=== PATIENT | male | born 1950 | race Caucasian/White ===

== ENCOUNTER 2024-02-04 08:58 | Outpatient (AMB) | payer OTHER, SELFPAY ==
--- NOTE | 2024-02-04 09:01 | MHC.OFFVIS ---
Intake Visit Reasons: Elevated PSA Intake Note: NEW Patient presents today to established treatment for ELEVATED PSA: Meds- None Allergies to Antibiotic- No Known Allergies Blood Thinner- None Post Void Residual: 46 mL Produce Service Team Member Required: No Accompanied by: Self / Same As Patient Allergies lisinopril Allergy (Unknown, Verified 02/04/24 09:12) Unknown pravastatin Allergy (Unknown, Verified 02/04/24 09:12) Unknown simvastatin Allergy (Unknown, Verified 02/04/24 09:12) Unknown HPI Comments Details: Bradley is a pleasant male. He is a patient through the Dr. Gonzalez [place]. He is seen for the following urologic conditions - elevated PSA - lower urinary tract symptoms Lower urinary tract symptoms Progressive Weakness of stream with incomplete emptying Slowly rising PSA PSA - 06/04 5.1 F 26%, 10/08 7.6 MIKALA 2+ Plan trial of tamsulosin with finasteride 2 month follow-up tele [facility] Medical History (Updated 02/04/24 @ 09:38 by Thompson Peacock MD) Erectile dysfunction due to arterial insufficiency Poor urinary stream BPH with obstruction/lower urinary tract symptoms Elevated PSA Review of Systems Const Denies chills and Denies fever(s) Card Reports no additional complaints and Denies syncope Resp Denies cough GI Denies abdominal pain and Denies heartburn Reports as per HPI and Denies change in libido Neuro Denies syncope Psych Denies change in libido Endo Denies change in libido Physical Exam Const General: cooperative, healthy appearing, comfortable and no acute distress Orientation/consciousness: patient oriented x3 HEENT Face and sinus: Yes normal facial exam Mouth: moist mucous membranes Neck Neck: Yes normal visual inspection, Yes full ROM and Yes trachea midline Chest Chest palpation & inspection: normal inspection of the chest Resp Effort & Inspection: normal respiratory effort, able to speak in complete sentences and no respiratory distress GI Inspection: Yes normal to inspection Back/Spine/Pelvis Cervical Spine: normal cervical lordosis Thoracic/Lumbar Spine: thoracic and lumbar spine normal to inspection Skin General skin exam: no rashes or lesions noted Neuro General: patient oriented x3, gait normal, tone normal and moves all extremities Extrem General: Yes normal to inspection and Yes capillary refill normal Office Procedures Post Void Residual Post Residual Void Post Void Residual (PVR): 46 [id number]-[id number] Void Residual by ultrasound Results AMB Urinalysis, Automated UA Leukoctes 0 Kayley/uL Last Edit by LM Lance on 02/04/24 09:26 UA Nitrite Negative Last Edit by Julio Navarro Sujatha on 02/04/24 09:26 UA Urobilinogen 0.2 mg/dL Last Edit by Julio Navarro A on 02/04/24 09:26 UA Protein 0 mg/dL Last Edit by Julio Navarro A on 02/04/24 09:26 UA pH 6.0 Last Edit by Julio Navarro A on 02/04/24 09:26 UA Blood 0 Rajan/uL Last Edit by Julio Navarro A on 02/04/24 09:26 UA Specific [place] 1.020 Last Edit by Julio Navarro Sujatha on 02/04/24 09:26 UA Ketone Negative Last Edit by Julio Navarro [facility] on 02/04/24 09:26 UA Bilirubin 0 mg/dL Last Edit by Julio Navarro Sujatha on 02/04/24 09:26 UA Glucose 0 mg/dL Last Edit by Julio Navarro [facility] on 02/04/24 09:26 Results Reviewed Results Reviewed: Laboratory Last Values Urine pH (Auto) 6.0 02/04/24 09:12 Specific [place] (Auto) 1.020 02/04/24 09:12 Urine Protein (Auto) 0 mg/dL 02/04/24 09:12 Glucose (UA)(Auto) 0 mg/dL 02/04/24 09:12 Urine Ketones (Auto) Negative 02/04/24 09:12 Urine Blood (Auto) 0 Arjan/uL 02/04/24 09:12 Urine Nitrite (Auto) Negative 02/04/24 09:12 Urine Bilirubin (Auto) 0 mg/dL 02/04/24 09:12 Urine Urobilinogen (Auto) 0.2 mg/dL 02/04/24 09:12 Leukocyte Esterase (Auto) 0 Kayley/uL 02/04/24 09:12 Assessment & Plan Assessment & Plan (1) Poor urinary stream: Code(s): R39.12 - Poor urinary stream Category: Medical (2) BPH with obstruction/lower urinary tract symptoms: Code(s): N40.1 - Benign prostatic hyperplasia with lower urinary tract symptoms; N13.8 - Other obstructive and reflux uropathy Category: Medical (3) Elevated PSA: Code(s): R97.20 - Elevated prostate specific antigen [PSA] Category: Medical Plan Two month follow-up tele Orders: Orders AMB Urinalysis Automated Today Z13.9 - Encounter for screening, unspecified AMB Post Void Residual by ultrasound Today N39.8 - Other specified disorders of urinary system Medications: New tamsulosin 0.4 mg PO BEDTIME 30 days 30 caps 1RF N13.8 - Other obstructive and reflux uropathy, N40.1 - Benign prostatic hyperplasia with lower urinary tract symptoms, R35.1 - Nocturia finasteride 5 mg PO DAILY 90 days 90 tabs 1RF N13.8 - Other obstructive and reflux uropathy, N40.1 - Benign prostatic hyperplasia with lower urinary tract symptoms, R33.9 - Retention of urine, unspecified Patient Instructions: Imaging studies, laboratory and physical exam results were discussed and reviewed in detail. No major barriers to patient understanding were identified. An opportunity to ask questions regarding the treatment plan was provided. All questions were answered. The patient expressed understanding and agreement with the above treatment plan. The patient is aware they should contact our office by phone for worsening of their current condition or the appearance of new urologic symptoms. Compliance is encouraged with any medications and followup testing that is ordered. It is a privilege to participate in the urologic care of your patient. If you have any questions or concerns regarding treatment for the above conditions, or other urologic issues, please do not hesitate to contact me. The office telephone contact is [phone]. This note is constructed using voice recognition software. While every effort has been made to ensure accuracy epic stork specialists errors may have been included. Yours sincerely, Dr Thompson Peacock MD, [facility] - Urology Providers of Expert, Compassionate Care for the Genitourinary System Coding Level of Care Code New Pt Level 4 (84186) Diagnoses Poor urinary stream R39.12 BPH with obstruction/lower urinary tract symptoms N40.1; N13.8 Elevated PSA R97.20 CPT Codes Post Residual Void - PVR CPT Code: 35360-Ogdw Void Residual by ultrasound ([id number])
== END 2024-02-04 09:44 | disposition home or self-care (01) ==
PROVIDERS: Visit Provider Urology
DX: N40.1 Benign prostatic hyperplasia with lower urinary tract symptoms (principal); R39.12 Poor urinary stream; N13.8 Other obstructive and reflux uropathy; R97.20 Elevated prostate specific antigen [PSA]
CPT/HCPCS: 99204

== ENCOUNTER → 2024-02-04 08:58 | Outpatient (BNVA) | payer OTHER, SELFPAY | PROVIDERS: Visit Provider Urology | DX: N40.1 Benign prostatic hyperplasia with lower urinary tract symptoms (principal); N13.8 Other obstructive and reflux uropathy; R39.12 Poor urinary stream; R97.20 Elevated prostate specific antigen [PSA] | CPT/HCPCS: 51798; 81003; 99202 ==

== ENCOUNTER 2024-04-06 08:18 | Outpatient (AMB) | payer OTHER, SELFPAY ==
--- NOTE | 2024-04-06 08:31 | MHC.OFFVIS ---
Intake Visit Reasons: 2M Med Review(Finasteride/Tamsulosin) Intake Note: Patient presents today for 2m med review Meds- tamsulosin,finasteride Allergies to Antibiotic- No Known Allergies Blood Thinner- None Post Void Residual: 46 mL today's PVR:0ML'S Instrument And Control Service Person Required: No Accompanied by: Self / Same As Patient Allergies lisinopril Allergy (Unknown, Verified 04/06/24 08:32) Unknown pravastatin Allergy (Unknown, Verified 04/06/24 08:32) Unknown simvastatin Allergy (Unknown, Verified 04/06/24 08:32) Unknown HPI Comments Details: Bradley is a pleasant male. He is a patient through the Dr. Lisa RAMOS. He is seen for the following urologic conditions - elevated PSA - lower urinary tract symptoms Tamsulosin made him feel dizzy Restart finasteride Six-month follow-up Lower urinary tract symptoms Progressive Weakness of stream with incomplete emptying Slowly rising PSA PSA - 06/04 5.1 F 26%, 10/08 7.6 MIKALA 2+ Off medications PVR 0 cc PFSH Medical History (Updated 02/04/24 @ 09:38 by Thompson Peacock MD) Erectile dysfunction due to arterial insufficiency Poor urinary stream BPH with obstruction/lower urinary tract symptoms Elevated PSA Review of Systems Const Denies chills and Denies fever(s) Card Reports no additional complaints and Denies syncope Resp Denies cough GI Denies abdominal pain and Denies heartburn Reports as per HPI and Denies change in libido Neuro Denies syncope Psych Denies change in libido Endo Denies change in libido Physical Exam Const General: cooperative, healthy appearing, comfortable and no acute distress Orientation/consciousness: patient oriented x3 HEENT Face and sinus: Yes normal facial exam Mouth: moist mucous membranes Neck Neck: Yes normal visual inspection, Yes full ROM and Yes trachea midline Chest Chest palpation & inspection: normal inspection of the chest Resp Effort & Inspection: normal respiratory effort, able to speak in complete sentences and no respiratory distress GI Inspection: Yes normal to inspection Back/Spine/Pelvis Cervical Spine: normal cervical lordosis Thoracic/Lumbar Spine: thoracic and lumbar spine normal to inspection Skin General skin exam: no rashes or lesions noted Neuro General: patient oriented x3, gait normal, tone normal and moves all extremities Extrem General: Yes normal to inspection and Yes capillary refill normal Results AMB Urinalysis, Automated UA Leukoctes 0 Kayley/uL Last Edit by JOSE Knott on 04/06/24 08:43 UA Nitrite Negative Last Edit by JOSE Knott on 04/06/24 08:43 UA Urobilinogen 0.2 mg/dL Last Edit by JOSE Knott on 04/06/24 08:43 UA Protein 15 mg/dL Last Edit by JOSE Knott on 04/06/24 08:43 UA pH 6.0 Last Edit by Gulshan Hill [facility] on 04/06/24 08:43 UA Blood 0 Rajan/uL Last Edit by JOSE Knott on 04/06/24 08:43 UA Specific [place] 1.025 Last Edit by JOSE Knott on 04/06/24 08:43 UA Ketone Negative Last Edit by Gulshan Hill [facility] on 04/06/24 08:43 UA Bilirubin 0 mg/dL Last Edit by JOSE Knott on 04/06/24 08:43 UA Glucose 0 mg/dL Last Edit [facility] on 04/06/24 08:43 Results Reviewed Results Reviewed: Laboratory Last Values Urine pH (Auto) 6.0 04/06/24 08:42 Specific [place] (Auto) 1.025 04/06/24 08:42 Urine Protein (Auto) 15 mg/dL 04/06/24 08:42 Glucose (UA)(Auto) 0 mg/dL 04/06/24 08:42 Urine Ketones (Auto) Negative 04/06/24 08:42 Urine Blood (Auto) 0 Rajan/uL 04/06/24 08:42 Urine Nitrite (Auto) Negative 04/06/24 08:42 Urine Bilirubin (Auto) 0 mg/dL 04/06/24 08:42 Urine Urobilinogen (Auto) 0.2 mg/dL 04/06/24 08:42 Leukocyte Esterase (Auto) 0 Kayley/uL 04/06/24 08:42 Assessment & Plan Assessment & Plan (1) BPH with obstruction/lower urinary tract symptoms: Code(s): N40.1 - Benign prostatic hyperplasia with lower urinary tract symptoms; N13.8 - Other obstructive and reflux uropathy Category: Medical (2) Elevated PSA: Code(s): R97.20 - Elevated prostate specific antigen [PSA] Category: Medical Plan Restart finasteride Orders: Orders AMB Urinalysis Automated Today Z13.9 - Encounter for screening, unspecified Medications: Refilled finasteride 5 mg PO DAILY 90 days 90 tabs 1RF N13.8 - Other obstructive and reflux uropathy, N40.1 - Benign prostatic hyperplasia with lower urinary tract symptoms Patient Instructions: Imaging studies, laboratory and physical exam results were discussed and reviewed in detail. No major barriers to patient understanding were identified. An opportunity to ask questions regarding the treatment plan was provided. All questions were answered. The patient expressed understanding and agreement with the above treatment plan. The patient is aware they should contact our office by phone for worsening of their current condition or the appearance of new urologic symptoms. Compliance is encouraged with any medications and followup testing that is ordered. It is a privilege to participate in the urologic care of your patient. If you have any questions or concerns regarding treatment for the above conditions, or other urologic issues, please do not hesitate to contact me. The office telephone contact is [phone]. This note is constructed using voice recognition software. While every effort has been made to ensure accuracy wireworker errors may have been included. Yours sincerely, Dr Thompson Peacock MD, [facility] - Urology Providers of Expert, Compassionate Care for the Genitourinary System Coding Level of Care Code Est Pt Level 3 (84776) Diagnoses BPH with obstruction/lower urinary tract symptoms N40.1; N13.8 Elevated PSA R97.20
== END 2024-04-06 08:57 | disposition home or self-care (01) ==
PROVIDERS: Visit Provider Urology
DX: N40.1 Benign prostatic hyperplasia with lower urinary tract symptoms (principal); N13.8 Other obstructive and reflux uropathy; R97.20 Elevated prostate specific antigen [PSA]; Z13.9 Encounter for screening, unspecified
CPT/HCPCS: 99213

== ENCOUNTER → 2024-04-06 08:18 | Outpatient (BNVA) | payer OTHER, SELFPAY | PROVIDERS: Visit Provider Urology | DX: N40.1 Benign prostatic hyperplasia with lower urinary tract symptoms (principal); N13.8 Other obstructive and reflux uropathy; R97.20 Elevated prostate specific antigen [PSA] | CPT/HCPCS: 81003; 99212 ==

== ENCOUNTER 2024-12-10 13:50 | Outpatient (AMB) | payer OTHER, SELFPAY ==
--- NOTE | 2024-12-10 13:52 | A.OFFVIS_ITS ---
Intake Visit Reasons: 3m PVR/Med Review Intake Note: Pt presents to the office today for a 3 month follow up/PVR/Med review. PVR:10mL Allergies lisinopril Allergy (Unknown, Verified 12/10/24 13:52) Unknown pravastatin Allergy (Unknown, Verified 12/10/24 13:52) Unknown simvastatin Allergy (Unknown, Verified 12/10/24 13:52) Unknown HPI Comments Details: Bradley is a pleasant male. He is a patient through the Dr. Lisa RAMOS. He is seen for the following urologic conditions - elevated PSA - lower urinary tract symptoms Six-month follow-up on finasteride Repeat PSA six-month Refill [facility] Lower urinary tract symptoms Progressive Weakness of stream with incomplete emptying Slowly rising PSA PSA - 06/04 5.1 F 26%, 10/08 7.6 MIKALA 2+ Off medications PVR 0 cc PFSH Medical History Erectile dysfunction due to arterial insufficiency Poor urinary stream BPH with obstruction/lower urinary tract symptoms Elevated PSA Review of Systems Const Denies chills and Denies fever(s) Card Reports no additional complaints and Denies syncope Resp Denies cough GI Denies abdominal pain and Denies heartburn Reports as per HPI and Denies change in libido Neuro Denies syncope Psych Denies change in libido Endo Denies change in libido Physical Exam Const General: cooperative, healthy appearing, comfortable and no acute distress Orientation/consciousness: patient oriented x3 HEENT Face and sinus: Yes normal facial exam Mouth: moist mucous membranes Neck Neck: Yes normal visual inspection, Yes full ROM and Yes trachea midline Chest Chest palpation & inspection: normal inspection of the chest Resp Effort & Inspection: normal respiratory effort, able to speak in complete sentences and no respiratory distress GI Inspection: Yes normal to inspection Back/Spine/Pelvis Cervical Spine: normal cervical lordosis Thoracic/Lumbar Spine: thoracic and lumbar spine normal to inspection Skin General skin exam: no rashes or lesions noted Neuro General: patient oriented x3, gait normal, tone normal and moves all extremities Extrem General: Yes normal to inspection and Yes capillary refill normal Office Procedures Post Void Residual Post Residual Void Post Void Residual (PVR): 10 [id number] Void Residual by ultrasound Assessment & Plan Assessment & Plan (1) Elevated PSA: Code(s): R97.20 - Elevated prostate specific antigen [PSA] Category: Medical (2) BPH with obstruction/lower urinary tract symptoms: Code(s): N40.1 - Benign prostatic hyperplasia with lower urinary tract symptoms; N13.8 - Other obstructive and reflux uropathy Category: Medical Plan Six-month follow-up PSA Orders: Orders AMB Post Void Residual by ultrasound Today N13.8 - Other obstructive and reflux uropathy, N40.1 - Benign prostatic hyperplasia with lower urinary tract symptoms PSA,Total (Free>4and<10) Today R97.20 - Elevated prostate specific antigen [PSA] PSA,Total (Free>4and<10) 6 Months R97.20 - Elevated prostate specific antigen [PSA] Medications: Refilled finasteride 5 mg PO DAILY 90 days 90 tabs 1RF N13.8 - Other obstructive and reflux uropathy, N40.1 - Benign prostatic hyperplasia with lower urinary tract symptoms Patient Instructions: This note is constructed using voice recognition software. While every effort has been made to ensure accuracy multimedia author errors may have been included. Imaging studies, laboratory and physical exam results were discussed and reviewed in detail. No major barriers to patient understanding were identified. An opportunity to ask questions regarding the treatment plan was provided. All questions were answered. The patient expressed understanding and agreement with the above treatment plan. The patient is aware they should contact our office by phone for worsening of their current condition or the appearance of new urologic symptoms. Compliance is encouraged with any medications and followup testing that is ordered. It is a privilege to participate in the urologic care of your patient. If you have any questions or concerns regarding treatment for the above conditions, or other urologic issues, please do not hesitate to contact me. The office telephone contact is [phone]. Sincerely, Dr Thompson Peacock MD, [facility] - Urology Compassionate Specialist Care for the Genitourinary System Coding Level of Care Code Est Pt Level 3 (35402) Diagnoses Elevated PSA R97.20 BPH with obstruction/lower urinary tract symptoms N40.1; N13.8 CPT Codes Post Residual Void - PVR CPT Code: 13275-Dpif Void Residual by ultrasound ([id number])
== END 2024-12-10 14:21 | disposition home or self-care (01) ==
LOC: HO.HUSH 13:50
PROVIDERS: Visit Provider Urology
DX: R97.20 Elevated prostate specific antigen [PSA] (principal); N40.1 Benign prostatic hyperplasia with lower urinary tract symptoms; N13.8 Other obstructive and reflux uropathy
CPT/HCPCS: 99213

== ENCOUNTER → 2024-12-10 13:50 | Outpatient (BNVA) | payer OTHER, SELFPAY | PROVIDERS: Visit Provider Urology | DX: N40.1 Benign prostatic hyperplasia with lower urinary tract symptoms (principal); N13.8 Other obstructive and reflux uropathy; R97.20 Elevated prostate specific antigen [PSA] | CPT/HCPCS: 51798; 99212 ==

== ENCOUNTER 2025-05-26 09:45 | Outpatient (REF) | payer OTHER, SELFPAY ==
[2025-05-26 13:54] LABS: PSA,Total (Free>4and<10) 4.40 ng/mL (0.00-4.00)
[2025-05-28 08:58] LABS: Free Prostate Spec Ag 0.7 ng/mL; Percent Free Prostate Spec Ag 18 % (calc) (>25)
== END 2025-05-26 09:46 | disposition home or self-care (01) ==
LOC: HO.HKASLDS 09:45
PROVIDERS: Visit Provider Urology
DX: R97.20 Elevated prostate specific antigen [PSA] (principal); Z12.5 Encounter for screening for malignant neoplasm of prostate
CPT/HCPCS: 36415; 84153; 84154